=== PATIENT | female | born 1945 | race Caucasian/White ===

== ENCOUNTER 2016-11-01 07:58 | Emergency (ER) | payer OTHER ==
[2016-11-01 08:10] VITALS: BP 151/87; PULSE 78; RESP 18; O2SAT 96
--- NOTE | 2016-11-01 09:38 | UCPHY ---
[id number] side - had somedifficulty swallowing yesterday - took tyl 100mg 3 hrs ago Time Seen by Provider: 11/01/16 08:41 HPI/ROS: CHIEF COMPLAINT: Sore throat HISTORY OF PRESENT ILLNESS: This is a generally healthy 71-year-old female with a history of hypertension who presents with 1 day of sore throat, predominantly on the left side. It felt like razor blades. She has taken Tylenol this morning and this has relieved the pain somewhat. She also feels some pressure in her left ear. She has not had fever, headache, facial pain, or cough. She is able to swallow without difficulty, although it is painful. She has a history of chronic intermittent sinus drainage. REVIEW OF SYSTEMS: A ten point review of systems was performed and is negative with the exception of the items mentioned in the HPI. 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 - Physical Exam Exam: General Appearance: Alert. Vital signs reviewed. Blood pressure 151/87. Eyes: Pupils equal and round, no conjunctival injection, no discharge. Anicteric. ENT, Mouth: No sinus tenderness. Mucous membranes are moist, mild oral pharyngeal erythema, slightly worse on the left. There is mild swelling of the left tonsil, no palatal edema or uvular swelling. No exudates. Neck: No lymphadenopathy, supple. Respiratory: Lungs are clear to auscultation; no wheezes, rales, or rhonchi. Cardiovascular: Regular rate and rhythm; no murmur, rub, or gallop. Skin: Warm and dry, no rashes on exposed skin, normal color. Extremities: No lower extremity edema, no calf tenderness or swelling. Neurological: Alert and oriented. Moving all four extremities easily and equally. Facial sensation intact to light touch. Psychiatric: Normal affect. Constitutional: Initial Vital Signs Heart Rate 78 11/01/16 08:08 Respiratory Rate 18 11/01/16 08:08 Blood Pressure 151/87 H 11/01/16 08:08 O2 Sat (%) 96 11/01/16 08:08 O2 Delivery Mode Room Air Allergies/Adverse Reactions: No Known Allergies Allergy (Verified 02/05/16 17:28) Home Medications: Medication Instructions Recorded Atorvastatin Calcium [Lipitor 10 02/05/16 mg (*)] Losartan/Hctz 50/12.5 [Hyzaar 02/05/16 50/12.5MG (*)] Prempro 0.3 mg-1.5 mg Tablet 11/01/16 Medical Decision Making ED Course/Re-evaluation: Rapid strep test is negative. Symptomatic measures for treatment of a viral pharyngitis were reviewed. She is able to swallow and should be able to remain hydrated. She does not appear toxic. We reviewed the danger signs that should prompt her to be re-evaluated. Differential Diagnosis: DDX includes but is not limited to viral or bacterial pharyngitis, retropharyngeal abscess, peritonsillar abscess, and epiglottitis. Departure - Departure Disposition: Home, Routine, Self-Care Clinical Impression: Pharyngitis Qualifiers: Pharyngitis/tonsillitis etiology: unspecified etiology Qualifier Code: (J02.9) Acute pharyngitis, unspecified Condition: Good Instructions: Pharyngitis (ED) Additional Instructions: This is most likely a viral sore throat, so antibiotics will not help. Door strep throat rapid test was negative. Adult Pain & Fever Control: We recommend Acetaminophen (Tylenol) and Ibuprofen (Motrin,Advil) for pain and fever control. When fever is high or pain severe, both drugs can be used at the same time, but at different intervals. Please note the time differences. Your dose is: Acetaminophen 650mg every 4 to 6 hours Ibuprofen 400mg every 8 hours with food OR Note: do not take Acetaminophen with Hydrocodone (Vicodin, Lortab) or Oycodone (Percocet). These medications also contain Acetaminophen. No more than 3000mg of Acetaminophen should be taken in 24 hours (for an adult). It is fine to use any of the [id number] sore throat remedies. I recommend [place] cold care throat coat tea with honey added. Referrals: Kailee Hernandez PA [[facility]] - As per Instructions - PQRS PQRS Measurement: 134: Depression screening and followup, PRIME MD-PHQ2 (12 years and older) Over the last 2 weeks, how often have you been bothered by any of the following problems? 1. Feeling down, depressed, or hopeless? 2. Little interest or pleasure in doing things? Patient answered no to both 1 and 2 130: Documentation of medications. Reviewed all patient medications, doses, route and frequency. 226: Do you smoke? No. 47: 65 and older: Advanced care planning. Patient designates surrogate decision maker as parent spouse . Patient has advanced directive. 51: 18 years old and older with diagnosis of COPD, spirometry performance. Patient has no history of COPD 52: 18 years old and older with COPD and symptoms of COPD or FEV1<60% predicted prescribed a B Agonist. Not applicable
== END 2016-11-01 10:00 | disposition home or self-care (01) ==
LOC: CED 07:58
DX: J02.9 Acute pharyngitis, unspecified (principal); H93.8X2 Other specified disorders of left ear; I10 Essential (primary) hypertension
CPT/HCPCS: 87880-PO; 99214-PO; G0463-PO

== ENCOUNTER → 2017-06-10 | Outpatient (CLI) | payer OTHER | LOC: FIMAGING 08:37 | PROVIDERS: ATTEND Internal Medicine | DX: Z12.31 Encounter for screening mammogram for malignant neoplasm of breast (principal) | CPT/HCPCS: G0202 ==

== ENCOUNTER 2018-10-06 12:06 | Emergency (ER) | payer OTHER ==
[2018-10-06 13:09] LABS: PLATELET COUNT 372 10^3/uL (150-400)
--- NOTE | 2018-10-06 13:21 | EDPHY ---
H & P Stated Complaint: Near-syncope c SOB following exertion this AM. Nausea. Time Seen by Provider: 10/06/18 12:53 HPI/ROS: Chief Complaint: Lightheaded, malaise HPI: 72-year-old woman with history of hypertension hyperlipidemia had an episode 5 and 0.5 hr ago of feeling mildly short of breath when going up the stairs carrying laundry. Patient states she has to have symptoms like this when she was heavy year but has lost weight in the last couple of years. She also is complaining of some lightheadedness. Had some general malaise. No chest pain or shortness of breath. Symptoms lasted for short while and then resolved. She laid down and had arrest. She woke up couple hours later. Continue to feeling just in general fatigue and malaise with some mild lightheadedness. There is no room spinning. She did not fall or have a syncopal event. It was not positional. No nausea or vomiting. No leg pain or swelling. No chest pain or shortness of breath. No fevers or chills. Does have a history of recurrent UTIs, last was 1 month ago but does not have any urinary symptoms at this time. She did have similar episode several years ago is admit to the hospital for the extensive workup which was negative. No family history of coronary artery disease or sudden cardiac in young age. ROS: 10 systems were reviewed and were negative except those elements noted in the HPI. PMH: Hypertension, hyperlipidemia Social History: No smoking, no alcohol, no recreational drug use Family History: non-contributory Physical Exam: Gen: Awake, Alert, No Distress HEENT: Nose: no rhinorrhea Eyes: PERRLA, EOMI Mouth: Moist mucosa Neck: Supple, no JVD Chest: nontender, lungs clear to auscultation Heart: S1, S2 normal, no murmur Abd: Soft, non-tender, no guarding Back: no CVA tenderness, no midline tenderness Ext: no edema, non-tender Skin: no rash Neuro: CN II-XII intact, Sensation grossly intact, Strength 5/5 in bilateral upper and lower extremities - Personal History Current Tetanus/Diphtheria Vaccine: Yes - Medical/Surgical History Hx Asthma: No Hx Chronic Respiratory Disease: No Hx Diabetes: No Hx Cardiac Disease: No Hx Renal Disease: No Hx Cirrhosis: No Hx Alcoholism: No Hx HIV/AIDS: No Hx Splenectomy or Spleen Trauma: No Other PMH: Hypertension, hyperlipidemia - Social History Smoking Status: Never smoked Constitutional: Initial Vital Signs Temperature (C) 36.6 C 10/06/18 12:10 Heart Rate 80 10/06/18 12:10 Respiratory Rate 18 10/06/18 12:10 Blood Pressure 133/75 H 10/06/18 12:10 O2 Sat (%) 96 10/06/18 12:10 O2 Delivery Mode Room Air Allergies/Adverse Reactions: No Known Allergies Allergy (Verified 10/06/18 12:10) Home Medications: Medication Instructions Recorded Atorvastatin Calcium [Lipitor 10 02/05/16 mg (*)] Losartan/Hctz 50/12.5 [Hyzaar 02/05/16 50/12.5MG (*)] Prempro 0.3 mg-1.5 mg Tablet 11/01/16 Medical Decision Making - Diagnostics EKG Interpretation: ECG time 12:51 p.m., sinus rhythm with a rate of 68, normal axis, normal intervals, no acute ST or T-wave changes. Impression: Normal ECG. ED Course/Re-evaluation: 72-year-old woman with an episode of shortness of breath 5 9 hr prior to arrival which has since resolved. Some generalized lightheadedness since. Her ECG is completely normal. CBC, electrolytes, troponin, urinalysis are all negative. She is symptom-free at this time. I have answered all her questions. She does see Dr. Cho, cardiology. I have encouraged her to follow up as an outpatient. No evidence of acute coronary syndrome at this time. I have cautioned to return for any concerning symptoms which we have reviewed. - Data Points Laboratory Results: Laboratory Results 10/06/18 13:00 10/06/18 13:00 10/06/18 10/06/18 10/06/18 13:40 13:04 13:00 WBC RBC Hgb Hct MCV MCH MCHC RDW Plt Count MPV Neut % (Auto) Lymph % (Auto) [place] % (Auto) Eos % (Auto) Baso % (Auto) Nucleat RBC Rel Count Absolute Neuts (auto) Absolute Lymphs (auto) Absolute Monos (auto) Absolute Eos (auto) Absolute Basos (auto) Absolute Nucleated RBC Immature Gran % Immature Gran # Sodium 140 mEq/L mEq/L (135-145) Potassium 4.7 mEq/L mEq/L (3.5-5.2) Chloride 107 mEq/L mEq/L (97-110) Carbon Dioxide 23 mEq/l mEq/l (22-31) Anion Gap 10 mEq/L mEq/L (6-14) BUN 23 mg/dL mg/dL (7-23) Creatinine 0.8 mg/dL mg/dL (0.6-1.0) Estimated GFR > 60 Glucose 77 mg/dL mg/dL (70-100) Calcium 9.4 mg/dL mg/dL (8.5-10.4) POC Troponin I 0.00 ng/mL ng/mL (0.00-0.08) Urine Color PALE YELLOW Urine Appearance CLEAR Urine pH 6.0 (5.0-7.5) Ur Specific [place] 1.004 (1.002-1.030) Urine Protein NEGATIVE (NEGATIVE) Urine Ketones NEGATIVE (NEGATIVE) Urine Blood 1+ H (NEGATIVE) Urine Nitrate NEGATIVE (NEGATIVE) Urine Bilirubin NEGATIVE (NEGATIVE) Urine Urobilinogen NEGATIVE EU EU (0.2-1.0) Ur Leukocyte Esterase NEGATIVE (NEGATIVE) Urine RBC 1-3 /hpf /hpf (0-3) Urine WBC 1-3 /hpf /hpf (0-3) Ur Epithelial Cells NONE SEEN /lpf /lpf (NONE-1+) Urine Glucose NEGATIVE (NEGATIVE) 10/06/18 13:00 WBC 10.36 10^3/uL H 10^3/uL (3.80-9.50) RBC 4.50 10^6/uL 10^6/uL (4.18-5.33) Hgb 13.8 g/dL g/dL (12.6-16.3) Hct 41.1 % % (38.0-47.0) MCV 91.3 fL fL (81.5-99.8) MCH 30.7 pg pg (27.9-34.1) MCHC 33.6 g/dL g/dL (32.4-36.7) RDW 14.0 % % (11.5-15.2) Plt Count 372 10^3/uL 10^3/uL (150-400) MPV 9.2 fL fL (8.7-11.7) Neut % (Auto) 76.7 % H % (39.3-74.2) Lymph % (Auto) 13.8 % L % (15.0-45.0) [place] % (Auto) 7.6 % % (4.5-13.0) Eos % (Auto) 1.3 % % (0.6-7.6) Baso % (Auto) 0.4 % % (0.3-1.7) Nucleat RBC Rel Count 0.0 % % (0.0-0.2) Absolute Neuts (auto) 7.95 10^3/uL H 10^3/uL (1.70-6.50) Absolute Lymphs (auto) 1.43 10^3/uL 10^3/uL (1.00-3.00) Absolute Monos (auto) 0.79 10^3/uL 10^3/uL (0.30-0.80) Absolute Eos (auto) 0.13 10^3/uL 10^3/uL (0.03-0.40) Absolute Basos (auto) 0.04 10^3/uL 10^3/uL (0.02-0.10) Absolute Nucleated RBC 0.00 10^3/uL 10^3/uL (0-0.01) Immature Gran % 0.2 % % (0.0-1.1) Immature Gran # 0.02 10^3/uL 10^3/uL (0.00-0.10) Sodium Potassium Chloride Carbon Dioxide Anion Gap BUN Creatinine Estimated GFR Glucose Calcium POC Troponin I Urine Color Urine Appearance Urine pH Ur Specific [place] Urine Protein Urine Ketones Urine Blood Urine Nitrate Urine Bilirubin Urine Urobilinogen Ur Leukocyte Esterase Urine RBC Urine WBC Ur Epithelial Cells Urine Glucose Point of Care Test Results: Chemistry 10/06/18 13:04 POC Troponin I 0.00 ng/mL ng/mL (0.00-0.08) Departure - Departure Disposition: Home, Routine, Self-Care Clinical Impression: Lightheaded, Shortness of breath Condition: Good Instructions: Lightheadedness (ED), Shortness of Breath (ED) Additional Instructions: Follow up with primary care physician and a inter com installer in 2-3 days for further evaluation. Return to the emergency department for worsening shortness of breath, substernal chest pain, fainting, nausea, vomiting, or any other concerns. Referrals: Mary Wynn MD [Primary Care Provider] - As per Instructions Purnima Cho MD [Medical Doctor] - As per Instructions
[2018-10-06 14:33] VITALS: BP 152/81
--- NOTE | 2018-10-07 14:27 | CPEKG ---
Test Reason : OPEN Blood Pressure : / mmHG Vent. Rate : 068 BPM Atrial Rate : 068 BPM P-R Int : 177 ms QRS Dur : 093 ms QT Int : 372 ms P-R-T Axes : 039 070 040 degrees QTc Int : 396 ms Sinus rhythm Confirmed by Marc Molina ([id number]) on 10/07/2018 2:27:05 PM Referred By: Confirmed By:Marc Molina
== END 2018-10-06 14:32 | disposition home or self-care (01) ==
DX: R42 Dizziness and giddiness (principal); R06.02 Shortness of breath; R53.81 Other malaise; I10 Essential (primary) hypertension; E78.5 Hyperlipidemia, unspecified
CPT/HCPCS: 84484-PO

== ENCOUNTER → 2018-12-20 | Outpatient (CLI) | payer OTHER | LOC: FIMAGING 11:54 | PROVIDERS: ATTEND Internal Medicine | DX: Z12.31 Encounter for screening mammogram for malignant neoplasm of breast (principal) ==